=== PATIENT | male | born 1995 | race African-American/Black ===

== ENCOUNTER 2019-08-31 07:52 | Emergency (ER) | payer BC, OTHER | END 2019-08-31 08:31 | disposition home or self-care (01) | LOC: EDH 07:52 | DX: L03.211 Cellulitis of face (principal) ==

== ENCOUNTER 2020-02-23 20:21 | Emergency (ER) | payer BC, OTHER ==
[2020-02-23] MEDS ORDERED: LIDOCAINE HCL 1% 20 ML VIAL ONE (21:36)
== END 2020-02-23 22:24 | disposition home or self-care (01) ==
LOC: EDH 20:21
DX: L02.01 Cutaneous abscess of face (principal)
CPT/HCPCS: 10060